=== PATIENT | female | born 1995 | race African-American/Black ===

== ENCOUNTER 2018-05-22 15:34 | Emergency (ER) | payer SELFPAY ==
[2018-05-22] MEDS: ACETAMINOPHEN 325 MG TAB PO (15:52)
== END 2018-05-22 17:07 | disposition home or self-care (01) ==
LOC: M ED 15:34
DX: S00.83XA Contusion of other part of head, initial encounter (principal); S00.03XA Contusion of scalp, initial encounter; S60.212A Contusion of left wrist, initial encounter; Y04.8XXA Assault by other bodily force, initial encounter; Y92.099 Unspecified place in other non-institutional residence as the place of occurrence of the external cause; Y93.9 Activity, unspecified; Y99.9 Unspecified external cause status
CPT/HCPCS: 73110